=== PATIENT | male | born 1980 | race Caucasian/White ===

== ENCOUNTER 2017-04-13 19:59 | Outpatient (CLI) | payer SELFPAY | END 2017-04-13 20:00 | disposition EMS.NT | LOC: EMS 19:59 | PROVIDERS: ATTEND Surgery | DX: R42 Dizziness and giddiness (principal); R55 Syncope and collapse ==

== ENCOUNTER 2017-06-28 15:06 | Outpatient (CLI) | payer MEDICAID | END 2017-06-28 15:07 | disposition home or self-care (01) | LOC: SC 15:06 | PROVIDERS: ATTEND Internal Medicine Pulmonary Disease | DX: G47.30 Sleep apnea, unspecified (principal); G47.10 Hypersomnia, unspecified; G47.8 Other sleep disorders | CPT/HCPCS: 99203; 99212 ==

== ENCOUNTER 2017-08-14 20:17 | Outpatient (CLI) | payer MEDICAID | END 2017-08-14 20:18 | disposition home or self-care (01) | LOC: SC 20:17 | PROVIDERS: ATTEND Internal Medicine Pulmonary Disease | DX: G47.31 Primary central sleep apnea (principal) | CPT/HCPCS: 95810 ==

== ENCOUNTER 2017-10-12 09:19 | Outpatient (CLI) | payer MEDICAID | END 2017-10-12 09:20 | disposition home or self-care (01) | LOC: SC 09:19 | PROVIDERS: ATTEND Nurse Practitioner Family | DX: G47.31 Primary central sleep apnea (principal) | CPT/HCPCS: 99212; 99214 ==

== ENCOUNTER 2018-02-21 10:13 | Outpatient (CLI) | payer MEDICAID | END 2018-02-21 10:14 | disposition home or self-care (01) | LOC: SC 10:13 | PROVIDERS: ATTEND Nurse Practitioner Family | DX: G47.33 Obstructive sleep apnea (adult) (pediatric) (principal) | CPT/HCPCS: 99212; 99214 ==

== ENCOUNTER 2018-03-21 08:42 | Outpatient (CLI) | payer MEDICAID | END 2018-03-21 08:43 | disposition home or self-care (01) | LOC: SC 08:42 | PROVIDERS: ATTEND Nurse Practitioner Family | DX: G47.33 Obstructive sleep apnea (adult) (pediatric) (principal); G47.31 Primary central sleep apnea | CPT/HCPCS: 99212; 99214 ==

== ENCOUNTER 2018-05-11 14:47 | Outpatient (CLI) | payer MEDICAID | END 2018-05-11 14:48 | disposition home or self-care (01) | LOC: SC 14:47 | PROVIDERS: ATTEND Nurse Practitioner Family | DX: G47.31 Primary central sleep apnea (principal) | CPT/HCPCS: 99212; 99214 ==

== ENCOUNTER 2018-06-24 18:29 | Emergency (ER) | payer MEDICAID ==
[2018-06-24 18:38] VITALS: BP 146/91
[2018-06-24] MEDS ORDERED: HYDROcod/ACETAM 5/325 MG TABLET PO STA (20:08)
[2018-06-24] MEDS ORDERED: MELOXICAM 7.5 MG TABLET PO STA (20:08)
[2018-06-24] MEDS ORDERED: CYCLOBENZAPRINE 10 MG TABLET PO STA (20:09)
--- NOTE | 2018-06-24 20:11 | ED Physician Documentation ---
PD HPI BACK PAIN - Stated complaint Stated Complaint: BK PX - Chief complaint Chief Complaint: Back Pain - History obtained from History obtained from: Patient, Family - History of Present Illness Timing - onset: How many days ago (4) Timing - duration: Days (4) Timing - details: Gradual onset Pain level max: 7 Pain level now: 7 Location: Lower, Right, Left Quality: Spasm, Aching Associated symptoms: No: Fever, Weakness, Numbness, Incontinent of urine, Unable to urinate, Hematuria, Incontinent of stool Improves with: Rest Worsened by: Movement Contributing factors: Lifting. No: Trauma, Cancer, IVDA Similar symptoms before: Diagnosis (States has had back pain on the left for several years) Recently seen: Not recently seen Review of Systems Constitutional: denies: Fever GI: denies: Vomiting Skin: denies: Rash Musculoskeletal: denies: Neck pain Neurologic: denies: Focal weakness, Numbness PD PAST MEDICAL HISTORY - Past Medical History Past Medical History: Yes Cardiovascular: None Respiratory: None Neuro: None Endocrine/Autoimmune: None GI: None : None HEENT: None Psych: None Musculoskeletal: Chronic back pain Derm: None - Past Surgical History Past Surgical History: Yes Ortho: Spine surgery - Present Medications Home Medications: Ambulatory Orders Medication Instructions Recorded Confirmed Cyclobenzaprine [Flexeril] 10 mg PO TID PRN #20 tablet 02/27/15 Oxycodone HCl/Acetaminophen 1 - 2 each PO Q6H PRN #15 tablet 02/27/15 [Percocet 5-325 mg Tablet] Cyclobenzaprine [Flexeril] 10 mg PO TID PRN #20 tablet 06/24/18 Hydrocodone/Acetaminophen 1 - 2 each PO Q6H PRN #14 tablet 06/24/18 [Hydrocodon-Acetaminophen 5-325] Meloxicam [Mobic] 15 mg PO DAILY PRN #20 tablet 06/24/18 - Allergies Allergies/Adverse Reactions: Allergies Allergy/AdvReac Type Severity Reaction Status Date / Time No Known Drug Allergies Allergy Verified 06/24/18 18:38 - Social History Does the pt smoke?: No Smoking Status: Never smoker Does the pt drink ETOH?: No Does the pt have substance abuse?: No - Immunizations Immunizations are current?: Yes - POLST Patient has POLST: No PD ED PE NORMAL - Vitals Vital signs reviewed: Yes - General General: Alert and oriented X 3, No acute distress - HEENT HEENT: Moist mucous membranes - Neck Neck: Supple, no meningeal sign, No bony TTP - Cardiac Cardiac: RRR, Strong equal pulses - Respiratory Respiratory: No respiratory distress, Clear bilaterally - Back Back: No spinal TTP (No midline tenderness to palpation or percussion. No step- off or deformity.) - Derm Derm: Warm and dry - Extremities Extremities: No calf tenderness / cord, Other (Normal bilateral lower extremity patellar and ankle jerk reflexes. Normal great toe extension bilaterally. no saddle anesthesia) - Neuro Neuro: Alert and oriented X 3, No motor deficit, No sensory deficit Results - Vitals Vitals: Vital Signs - 24 hr 06/24/18 06/24/18 06/24/18 18:34 19:58 20:18 Temperature 36.2 C L Heart Rate 79 Respiratory 18 17 17 Rate Blood Pressure 146/91 H O2 Saturation 98 Oxygen O2 Source Room air PD MEDICAL DECISION MAKING - ED course Complexity details: considered differential (No cauda equina, no spinal epidural abscess, no fracture, no aortic dissection or evidence of aneursym rupture), d/w patient, d/w family ED course: Patient is a 37-year-old male with acute on chronic back pain. Will place on pain medication and muscle relaxants for home. No cauda equina, epidural abscess or fracture. No neurological deficits. Nonradiating. No sciatica. Patient counseled regarding signs and symptoms for which I believe and urgent re-evaluation would be necessary. Patient with good understanding of and agreement to plan and is comfortable going home at this time This document was made in part using voice recognition software. While efforts are made to proofread this document, sound alike and grammatical errors may occur. Departure - Departure Disposition: 01 Home, Self Care Clinical Impression: Low back strain Qualifiers: Encounter type: initial encounter Qualified Code(s): S39.012A - Strain of muscle, fascia and tendon of lower back, initial encounter Condition: Good Instructions: ED Sprain Strain Lumbar Follow-Up: your,doctor in 1 week [Other] Prescriptions: Cyclobenzaprine [Flexeril] 10 mg PO TID PRN #20 tablet PRN Reason: Spasms Hydrocodone/Acetaminophen [Hydrocodon-Acetaminophen 5-325] 1 - 2 each PO Q6H PRN #14 tablet PRN Reason: pain Meloxicam [Mobic] 15 mg PO DAILY PRN #20 tablet PRN Reason: pain Comments: Use the medications as prescribed. Return if you worsen. This should improve over the next few days. Do not drink alcohol or drive while on narcotic pain medicine. Note that many narcotic pain relievers also contain tylenol/acetaminophen. Please ensure that your total dose of acetaminophen from all sources does not exceed 3 grams (3000mg) per day. You may constipated on this medication, take a stool softener such as "Colace" twice a day while you are on it. Also recommend a hbtt-[id number] laxative such as senna or MiraLAX any day that you do not have a bowel movement. If you received narcotic pain medication in the emergency department, do not drive or operate machinery for the next 24 hours. Discharge Date/Time: 06/24/18 20:18
== END 2018-06-24 20:18 | disposition home or self-care (01) ==
LOC: ED 18:29
DX: S39.012A Strain of muscle, fascia and tendon of lower back, initial encounter (principal); X50.0XXA Overexertion from strenuous movement or load, initial encounter
CPT/HCPCS: 99283; A9270

== ENCOUNTER 2024-03-07 16:04 | Emergency (ER) | payer MEDICAID, OTHER ==
[2024-03-07 16:19] VITALS: BP 181/112; O2SAT 97
--- NOTE | 2024-03-07 16:26 | ED Physician Documentation ---
PD HPI HEENT - Stated complaint Stated Complaint: ABCESS TOOTH - Chief complaint Chief Complaint: Heent - History obtained from History obtained from: Patient - History of Present Illness Timing - onset: Today Timing - duration: Hours Timing - details: Gradual onset, Still present Location: Tooth Improves: Medication Associated symptoms: Congestion, Facial swelling Similar symptoms before: Diagnosis (bad tooth) Recently seen: Not recently seen - Additional information Additional information: Maicol Avalos is a 43-year-old male comes into the Emergency Department today complaining of a bad tooth on the left lower molar. He has had a tooth broken for years and he has not been in to see the dentist for it yet. He has had this swell up previously and he has had treatment for this successfully. He does not have any allergies to medications. He noticed the swelling this morning it is progressed throughout the day he has swelling to his face now. He has not had fever. Review of Systems Constitutional: denies: Fever Eyes: denies: Decreased vision Ears: denies: Ear pain Nose: reports: Congestion. denies: Rhinorrhea / runny nose Throat: reports: Dental pain / toothache Respiratory: denies: Cough GI: denies: Vomiting PD PAST MEDICAL HISTORY - Past Medical History Past Medical History: Yes Cardiovascular: None Respiratory: None Neuro: None Endocrine/Autoimmune: None GI: None : None HEENT: None Psych: None Musculoskeletal: Chronic back pain Derm: None - Past Surgical History Past Surgical History: Yes Ortho: Spine surgery - Present Medications Home Medications: Ambulatory Orders Medication Instructions Recorded Confirmed Amoxicillin 875 mg PO BID #20 tablet 03/07/24 HYDROcod/ACETAM 5/325 [Grimes 5/325] 1 - 2 tablet PO Q6H PRN #8 tablet 03/07/24 - Allergies Allergies/Adverse Reactions: Allergies Allergy/AdvReac Type Severity Reaction Status Date / Time No Known Drug Allergies Allergy Verified 03/07/24 16:17 - Social History Does the pt smoke?: No Smoking Status: Never smoker Does the pt drink ETOH?: No Does the pt have substance abuse?: No - Immunizations Immunizations are current?: Yes - POLST Patient has POLST: No PD ED PE NORMAL - Vitals Vital signs reviewed: Yes (Tachycardic and hypertensive) - General General: Alert and oriented X 3, No acute distress, Well developed/nourished - HEENT HEENT: Atraumatic, PERRL, EOMI, Other (There is a broken left lower molar that is tender to palpation the gingival tissue surrounding it is erythematous swollen and tender without fluctuance. There is no fluctuance to the gingival buccal recess and no buccal tenderness.) - Neck Neck: Supple, no meningeal sign, No bony TTP - Respiratory Respiratory: No respiratory distress - Derm Derm: Normal color, Warm and dry, No rash - Extremities Extremities: No deformity, No edema - Neuro Neuro: Alert and oriented X 3, manager wellness 2-12 intact, No motor deficit, No sensory deficit, Normal speech Eye Opening: Spontaneous Motor: Obeys Commands Verbal: Oriented GCS Score: 15 - Psych Psych: Normal mood, Normal affect Results - Vitals Vitals: Vital Signs - 24 hr 03/07/24 16:14 Temperature 36.0 C L Heart Rate 107 H Respiratory 17 Rate Blood Pressure 181/112 H O2 Saturation 97 Oxygen O2 Source Room air PD Medical Decision Making - ED course Complexity details: considered differential, d/w patient ED course: 43-year-old male with dental abscess we will place him on some amoxicillin and provide a truncated course of pain medication. Departure - Departure Disposition: 01 Home, Self Care Clinical Impression: Dental abscess Condition: Stable Instructions: ED Abscess Dental Prescriptions: Amoxicillin 875 mg PO BID #20 tablet HYDROcod/ACETAM 5/325 [Grimes 5/325] 1 - 2 tablet PO Q6H PRN #8 tablet PRN Reason: Pain Comments: Maicol, today looks like you have an abscessed tooth and I have E scribed some amoxicillin to the [facility] in [place]. We have also E scribed a limited number of pain medication pills to take as needed. Follow-up with a dentist for definitive care of this broken tooth.
== END 2024-03-07 16:47 | disposition home or self-care (01) ==
LOC: ED 16:04
DX: K04.7 Periapical abscess without sinus (principal)
CPT/HCPCS: 99282; 99284